=== PATIENT | female | born 1930 | race Caucasian/White ===

== ENCOUNTER 2016-08-10 17:50 | Emergency (ER) | payer OTHER ==
[~2016-08-10] VITALS: Ht 147.3 cm; Wt 56.7 kg
[~2016-08-10 17:50] MED LIST: Ambien PO; CIPRO500 MG PO; Cipro PO; FLAGYL500 MG PO; Flagyl PO; LEVOTHYROXINE75 MCG PO; MAXZIDE 75/501 EACH PO; SYNTHROID75 MCG PO; TENORMIN50 MG PO
[2016-08-10] MEDS ORDERED: BENADRYL50 MG PO (19:09)
[2016-08-10 19:31] VITALS: BP 161/75
== END 2016-08-10 19:32 | disposition home or self-care (01) ==
LOC: EME 17:50
DX: T50.995A Adverse effect of other drugs, medicaments and biological substances, initial encounter (principal); R60.1 Generalized edema; I10 Essential (primary) hypertension; Z88.2 Allergy status to sulfonamides
CPT/HCPCS: 99281; 99283